=== PATIENT | male | born 1985 | race Hispanic/Latino ===

== ENCOUNTER 2023-11-06 21:45 | Emergency (ER) | payer OTHER ==
[~2023-11-06] VITALS: Ht 165.1 cm; Wt 76.0 kg
[2023-11-06] MEDS ORDERED: KETOROLAC TROMETHAMINE 30 MG/ML SDV IM ONE (22:35)
[2023-11-06] MEDS ORDERED: ACETAMINOPHEN 500 MG TAB PO ONE ×2 (22:40→23:02)
[2023-11-06] MEDS ORDERED: traMADol HCL 50 MG/TAB PO ONE ×2 (22:40→23:05)
[2023-11-06 22:45] VITALS: BP 121/70
[2023-11-06 23:01] VITALS: BP 124/77
[2023-11-06] MEDS ORDERED: KETOROLAC TROMETHAMINE 30 MG/ML SDV ONE (23:02)
[2023-11-06 23:16] VITALS: BP 130/69
[2023-11-06] MEDS ORDERED: VOLTAREN - GENE75 MG PO (23:25)
[2023-11-06 23:30] VITALS: BP 124/80
[2023-11-06 23:32] VITALS: BP 124/80
[2023-11-07] MEDS ORDERED: GABAPENTIN300 M3 PO (13:40)
[2023-11-07] MEDS ORDERED: PREDNISONE20 MG PO (13:40)
[2023-11-07] MEDS ORDERED: METHOCARBAMOL500 MG PO (13:41)
== END 2023-11-06 23:42 | disposition home or self-care (01) | DRG 538 ==
LOC: ED 21:45
DX: S76.012A Strain of muscle, fascia and tendon of left hip, initial encounter (principal); S76.912A Strain of unspecified muscles, fascia and tendons at thigh level, left thigh, initial encounter; X58.XXXA Exposure to other specified factors, initial encounter; Y92.73 Farm field as the place of occurrence of the external cause; Y99.0 Civilian activity done for income or pay

== ENCOUNTER 2023-11-07 12:18 | Emergency (ER) | payer OTHER ==
[2023-11-07] VITALS (8 sets, daily range): BP systolic 89–150; BP diastolic 47–99
[~2023-11-07] VITALS: Ht 165.1 cm; Wt 81.6 kg
[~2023-11-07 12:18] MED LIST: VOLTAREN - GENE75 MG PO
[2023-11-07] MEDS ORDERED: predniSONE 20 MG/TAB PO ONE (12:35)
[2023-11-07] MEDS ORDERED: HYDROcodone 5 MG/Acetaminophen 325 MG/COMBO PO ONE (12:35)
[2023-11-07] MEDS ORDERED: METHOCARBAMOL 500 MG/TAB PO ONE (12:35)
[2023-11-07] MEDS ORDERED: GABAPENTIN300 M3 PO (13:40)
[2023-11-07] MEDS ORDERED: PREDNISONE20 MG PO (13:40)
[2023-11-07] MEDS ORDERED: METHOCARBAMOL500 MG PO (13:41)
== END 2023-11-07 14:05 | disposition home or self-care (01) | DRG 552 ==
LOC: ED 12:18
DX: M54.42 Lumbago with sciatica, left side (principal); T50.916A Underdosing of multiple unspecified drugs, medicaments and biological substances, initial encounter; Z91.128 Patient's intentional underdosing of medication regimen for other reason